=== PATIENT | female | born 1990 | race Caucasian/White ===

== ENCOUNTER 2016-10-01 21:44 | Emergency (ER) | payer BC ==
[~2016-10-01] VITALS: Ht 167.6 cm; Wt 195.5 kg
[~2016-10-01 21:44] MED LIST: EFFEXOR 75M75 MG/TAB PO; EFFEXOR100 MG PO; LEVOXYL0.025 MG PO; MOTRIN 800800 MG/TAB PO; SYNTHROID0.1 MG/TAB PO; SYNTHROID0.125 MG/T PO
[2016-10-01 21:49] VITALS: TEMP 98.1
[2016-10-01] MEDS ORDERED: ULTRAM 50MG TAB50 MG PO (22:15)
[2016-10-01 22:33] VITALS: BP 152/89; PULSE 79
== END 2016-10-01 22:32 | disposition home or self-care (01) ==
LOC: COL.ER 21:44
DX: J02.8 Acute pharyngitis due to other specified organisms (principal); B97.89 Other viral agents as the cause of diseases classified elsewhere